=== PATIENT | male | born 1970 | race Caucasian/White ===

== ENCOUNTER 2018-01-23 09:17 | Emergency (ER) | payer OTHER ==
[~2018-01-23] VITALS: Ht 162.6 cm; Wt 77.1 kg
[~2018-01-23 09:17] MED LIST: ACETAMINOPHEN-1 EAC1 PO; ASPIRIN EC81 M1; ASPIRIN81 M2 PO; BRILINTA90 MG PO; CENTRUM SILVER1 EAC2 PO; CLEOCIN HCL150 MG PO; CURAMIN; FISH OIL 1,0001 EAC5; FISH OIL 1,0001 EAC8 PO; FLEXERIL PO; GLUCOPHAGE1000 MG PO; HYDROCODONE-APA1 TA1 PO; HYOSCYAMINE0.375 M2 PO; IBUPROFEN 800800 M1 PO; LABETALOL 100100 MG PO; LIDOCAINE VISC100 M1 SWISH&SPIT; LISINOPRIL20 MG PO; LORTAB 7.5/5001 TA1 PO; NITROGLYCERIN0.4 MG SUBLING; ONDANSETRON HCL4 M3; PRAVACHOL40 MG PO; PRILOSEC 20 MG20 MG PO; TYLENOL325 MG PO; ZOFRAN ODT4 MG PO
[2018-01-23] MEDS ORDERED: GLUCOTROL5 MG PO (09:29)
[2018-01-23] MEDS ORDERED: IBUPROFEN 200200 M1 PO (09:29)
[2018-01-23] MEDS ORDERED: NORCO 5-325 TA1 EACH PO (10:46)
[2018-01-23 10:57] VITALS: BP 124/85
== END 2018-01-23 10:57 | disposition home or self-care (01) ==
LOC: M.ERS 09:17
DX: S86.812A Strain of other muscle(s) and tendon(s) at lower leg level, left leg, initial encounter (principal); I10 Essential (primary) hypertension; E11.9 Type 2 diabetes mellitus without complications; E78.00 Pure hypercholesterolemia, unspecified; K21.9 Gastro-esophageal reflux disease without esophagitis; I25.10 Atherosclerotic heart disease of native coronary artery without angina pectoris; X58.XXXA Exposure to other specified factors, initial encounter; Y93.89 Activity, other specified; Y92.89 Other specified places as the place of occurrence of the external cause; Y99.8 Other external cause status

== ENCOUNTER 2018-09-13 19:31 | Emergency (ER) | payer OTHER ==
[~2018-09-13] VITALS: Ht 162.6 cm; Wt 74.8 kg
[~2018-09-13 19:31] MED LIST changes: +GLUCOTROL5 MG PO; +IBUPROFEN 200200 M1 PO; +NORCO 5-325 TA1 EACH PO
[2018-09-13 19:36] VITALS: BP 151/94
[2018-09-13] MEDS ORDERED: JARDIANCE10 MG PO (19:40)
== END 2018-09-13 19:50 | disposition left against medical advice (07) ==
LOC: M.ERS 19:31
DX: Z53.21 Procedure and treatment not carried out due to patient leaving prior to being seen by health care provider (principal)

== ENCOUNTER 2020-01-14 07:55 | Emergency (ER) | payer OTHER ==
[~2020-01-14] VITALS: Ht 162.6 cm; Wt 71.7 kg
[~2020-01-14 07:55] MED LIST changes: +JARDIANCE10 MG PO
[2020-01-14] MEDS ORDERED: LISINOPRIL2.5 MG PO (08:10)
[2020-01-14] MEDS ORDERED: LABETALOL HCL100 MG PO (08:10)
[2020-01-14] MEDS ORDERED: PRAVASTATIN SOD80 MG PO (08:11)
[2020-01-14] MEDS ORDERED: OMEPRAZOLE20 M2 PO (08:11)
[2020-01-14] MEDS ORDERED: FISH OIL 1,0001 EAC9 PO (08:11)
[2020-01-14] MEDS ORDERED: ASA81BEC PO (08:11)
[2020-01-14] MEDS ORDERED: GLIPIZIDE5 MG PO (08:11)
[2020-01-14] MEDS ORDERED: JARDIANCE10 MG PO (08:12)
[2020-01-14] MEDS ORDERED: FLEXERIL PO (09:04)
[2020-01-14] MEDS ORDERED: NORCO 5-325 TA1 EAC2 PO (09:04)
[2020-01-14 09:25] VITALS: BP 136/86
--- NOTE | 2020-01-14 13:50 | EKG ---
[place] [address] ELECTROCARDIOGRAM REPORT Name: WANG FRANCES JR Room: [facility]#: [id number] Admission: 01/14/20 Attend Phys: Discharge: 01/14/20 Date of : 68 Date of Service: 01/14/20 0836 Report #: [id number] THIS REPORT FOR: //name// [facility] ED Test Date: 2020-01-14 Test Time: 08:36:10 Pat Name: WANG FRANCES Department: Room: Gender: [employer] Operator: [facility] : 1970 Requested By: Ambrose Keene Order Number: [id number] MD: Taran Goel Measurements Intervals [place] Rate: 71 P: 53 [place]: 187 QRS: 77 QRSD: 121 T: 49 QT: 403 QTc: 438 Interpretive Statements Sinus rhythm Left atrial enlargement Nonspecific intraventricular conduction delay Compared to ECG 12/14/2018 03:46:25 Atrial abnormality now present Electronically Signed On 01-14-2020 13:50:17 CDT by Taran oGel [email or web address] <ELECTRONICALLY SIGNED> By: Taran oGel MD, [facility] 01/14/20 1350 0836 0836 Taran Goel MD, [facility] /EPI
== END 2020-01-14 09:26 | disposition home or self-care (01) ==
LOC: M.ERS 07:55
DX: S23.41XA Sprain of ribs, initial encounter (principal); I10 Essential (primary) hypertension; E11.9 Type 2 diabetes mellitus without complications; E78.00 Pure hypercholesterolemia, unspecified; K21.9 Gastro-esophageal reflux disease without esophagitis; I25.10 Atherosclerotic heart disease of native coronary artery without angina pectoris; Z95.5 Presence of coronary angioplasty implant and graft; X50.9XXA Other and unspecified overexertion or strenuous movements or postures, initial encounter; Y93.89 Activity, other specified; Y92.89 Other specified places as the place of occurrence of the external cause; Y99.8 Other external cause status

== ENCOUNTER 2020-05-25 05:32 | Emergency (ER) | payer OTHER ==
[~2020-05-25] VITALS: Ht 162.6 cm; Wt 77.1 kg
--- NOTE | ~2020-05-25 | PROC ---
[facility] [address] [place] [address] PROCEDURE REPORT Name: WANG FRANCES JR Room: [facility]#: [id number] Admission: 05/25/20 Attend Phys: Discharge: 05/25/20 Date of : 68 Report #: [id number] THIS REPORT FOR: cc: Kike Benites MD, Matthew W. MD ~ [facility],Medical Records Staff For GI report, please see the Provation report in Perceptive 7 content. By: 1451Medical Records Staff YRN /SHARRON
[~2020-05-25 05:32] MED LIST changes: +ASA81BEC PO; +FISH OIL 1,0001 EAC9 PO; +GLIPIZIDE5 MG PO; +LABETALOL HCL100 MG PO; +LISINOPRIL2.5 MG PO; +NORCO 5-325 TA1 EAC2 PO; +OMEPRAZOLE20 M2 PO; +PRAVASTATIN SOD80 MG PO
[2020-05-25 06:43] LABS: ABSOLUTE BASOPHILS 0.1 thou/uL (0.0-0.2); ABSOLUTE LYMPHOCYTES 0.9 thou/uL (0.8-5.3); ABSOLUTE MONOCYTES 0.6 thou/uL (0.0-1.2); ABSOLUTE NEUTROPHILS 6.6 thou/uL (1.6-8.1); EOSINOPHILS 0.6 %; HEMOGLOBIN 16.8 gm/dL (14.0-18.0); LYMPHOCYTES 11.1 %; MCH 30.7 pg (26.0-34.0); MCHC 34.3 g/dL (28.0-37.0); MCV 89.4 fL (80.0-100.0); MONOCYTES 7.7 %; MPV 8.6 fl. (7.2-11.1); NUCLEATED RBCS 0 /100WBC; PLATELET COUNT* 205 thou/uL (150-400); POLYS 79.6 %; RBC 5.48 mil/uL (4.50-6.00); RDW-CV 14.4 % (10.5-14.5); WBC 8.4 thou/uL (4.0-11.0)
[2020-05-25 07:05] LABS: CREATININE 1.2 mg/dL (0.6-1.3)
[2020-05-25 07:09] LABS: ALBUMIN 4.3 g/dL (3.4-5.0); TOTAL BILIRUBIN 0.9 mg/dL (<0.1-1.0); TOTAL PROTEIN 8.3 g/dL (6.4-8.2)
[2020-05-25 10:06] VITALS: BP 138/84
--- NOTE | 2020-05-27 13:08 | PATH ---
[facility] [address] [place] [address] PATHOLOGY RPT PROCEDURE Name: JUAN DANIELWANG JR [id number] Admission: 05/25/20 Date of : 68 Discharge: 05/25/20 Report #: [id number] Path Case #: [id number] [facility] Accession Number: [id number] . 01 Material submitted: . stomach - GASTRIC BIOPSY . 01 Clinical history: . THROAT PAIN, VOMITING, NAUSEA . 02 Diagnosis: Gastric biopsy: - Severe nonspecific chronic gastritis, negative for Helicobacter pylori organisms and dysplasia. (DILIA:pit 05/27/2020) . Special stain: H. pylori immuno QTP 05/27/2020 1148 Local . 02 Electronically signed: . Tom Sanchez MD, Pathologist NPI- [id number] . 01 Gross description: . The specimen is received in formalin, labeled "Wang Barraza Jr", "gastric biopsy". Received are multiple segments of pale jeffers soft tissue, ranging in size from 0.1 cm to 0.2 cm. The specimen is entirely submitted in cassette A1.(SNA; 05/26/2020) RADHAMES/NELSY 05/26/2020 1625 Local . 02 Pathologist provided ICD-10: K29.50 . 02 CPT . 200238, R60646 Specimen Comment: A courtesy copy of this report has been sent to [phone] Specimen Comment: 1975, Specimen Comment: Report sent to ,DR JORGE / DR FLORES Performed at: [address] [facility] [address], [place], [place] [id number] MD Romulo Ziegler MD Phone: [phone] Performed at: [address] [facility] [address] [address], [place], [place] [id number] MD Tom Sanchez MD Phone: [phone]
== END 2020-05-25 10:07 | disposition still patient (30) ==
LOC: M.ERS 05:32
PROVIDERS: Personal Emergency Response Attendant
DX: T18.128A Food in esophagus causing other injury, initial encounter (principal); E11.9 Type 2 diabetes mellitus without complications; E78.00 Pure hypercholesterolemia, unspecified; K21.9 Gastro-esophageal reflux disease without esophagitis; I25.10 Atherosclerotic heart disease of native coronary artery without angina pectoris; Z95.5 Presence of coronary angioplasty implant and graft; Z79.899 Other long term (current) drug therapy; Z79.82 Long term (current) use of aspirin; Z20.828 Contact with and (suspected) exposure to other viral communicable diseases; X58.XXXA Exposure to other specified factors, initial encounter; Y93.89 Activity, other specified; Y92.89 Other specified places as the place of occurrence of the external cause; Y99.8 Other external cause status